=== PATIENT | female | born 1965 | race African-American/Black ===

== ENCOUNTER 2017-11-05 11:00 | Emergency (ER) | payer SELFPAY ==
[2017-11-05 11:54] LABS: Hemoglobin 12.5 g/dL (12.0-16.0); Mean Corpuscular HGB CONC 32.2 g/dL (32.0-36.0); Mean Corpuscular Hemoglobin 28.7 pg (27.0-31.0); Mean Corpuscular Volume 89.2 fl (81.0-99.0); Mean Platelet Volume 8.4 fL (7.4-10.4); Platelet Count 209 thou/uL (130-400); RBC Distribution Width 12.9 % (11.5-14.5); Red Blood Cell (RBC) Count 4.36 mill/uL (4.20-5.40); White Blood Cell (WBC) Count 5.7 thou/uL (4.8-10.8)
[2017-11-05 12:11] LABS: ALT (SGPT) 24 U/L (8-55); AST (SGOT) 28 U/L (5-34); Albumin 3.7 g/dL (3.5-5.0); Alkaline Phosphatase 50 U/L (40-150); Anion Gap 11 mmol/L (10-20); BUN (Urea Nitrogen) 9 mg/dL (7.0-18.7); Bilirubin, Total 0.7 mg/dL (0.2-1.2); CK (CPK) 155 U/L (29-168); Calc. Creatinine Clearance 0 mL/min (70-130); Carbon Dioxide 24 mmol/L (22-29); Chloride 105 mmol/L (98-107); Estimated GFR-MDRD Greater than 90; Globulin 3.6 g/dL (2.4-3.5); Glucose 86 mg/dL (70-105); Lipase 7 U/L (8-78); Potassium 4.2 mmol/L (3.5-5.1); Protein, Total 7.3 g/dL (6.0-8.3); Sodium 136 mmol/L (136-145)
--- NOTE | 2017-11-05 12:12 | RAD ---
AP VIEW CHEST: Date: 11/05/17 HISTORY: Chest pain. FINDINGS: Comparison made to previous exam from 07/20/10. AP view of chest demonstrates the lungs to be well aerated. No evidence of active intrathoracic disea se is seen. No evidence of effusions, pneumonia, or pneumothorax seen. IMPRESSION: Unremarkable AP view chest. POS: [facility]
[2017-11-05 12:15] LABS: CKMB 1.4 ng/mL (0-6.6); Troponin I Less than 0.010 ng/mL (< 0.028)
[2017-11-05 12:16] LABS: Eosinophils 1 % (0-10); Lymphocytes 46 % (21-51); MDiff Complete? YES; Monocytes 4 % (0-10); Neutrophil 49 % (42-75); PLT Morphology Comment Appears Adequate
[2017-11-05 15:20] LABS: Troponin I Less than 0.010 ng/mL (< 0.028)
== END 2017-11-05 15:48 | disposition home or self-care (01) ==
LOC: ERS 11:00
DX: R07.89 Other chest pain (principal)
CPT/HCPCS: 36415; 71045; 80053; 82550; 82553; 83690; 83880; 84484; 85025; 93005

== ENCOUNTER 2017-12-25 19:03 | Emergency (ER) | payer SELFPAY ==
[2017-12-25 19:30] LABS: Hemoglobin 11.8 g/dL (12.0-16.0); Mean Corpuscular HGB CONC 32.8 g/dL (32.0-36.0); Mean Corpuscular Hemoglobin 28.7 pg (27.0-31.0); Mean Corpuscular Volume 87.4 fl (81.0-99.0); Mean Platelet Volume 7.9 fL (7.4-10.4); Platelet Count 237 thou/uL (130-400); Red Blood Cell (RBC) Count 4.12 mill/uL (4.20-5.40)
[2017-12-25 19:50] LABS: ALT (SGPT) 7 U/L (8-55); AST (SGOT) 13 U/L (5-34); Albumin 3.8 g/dL (3.5-5.0); Alkaline Phosphatase 53 U/L (40-150); Anion Gap 11 mmol/L (10-20); BUN (Urea Nitrogen) 14 mg/dL (7.0-18.7); Bilirubin, Total 0.3 mg/dL (0.2-1.2); CK (CPK) 175 U/L (29-168); Calc. Creatinine Clearance 0 mL/min (70-130); Calcium 8.8 mg/dL (7.8-10.44); Carbon Dioxide 23 mmol/L (22-29); Chloride 107 mmol/L (98-107); Estimated GFR-MDRD Greater than 90; Globulin 3.2 g/dL (2.4-3.5); Glucose 93 mg/dL (70-105); Potassium 3.8 mmol/L (3.5-5.1); Sodium 137 mmol/L (136-145)
[2017-12-25 19:52] LABS: Eosinophils 1 % (0-10); Lymphocytes 72 % (21-51); MDiff Complete? YES; Monocytes 2 % (0-10); Neutrophil 25 % (42-75); PLT Morphology Comment Appears Adequate
[2017-12-25 19:54] LABS: CKMB 1.2 ng/mL (0-6.6); Troponin I Less than 0.010 ng/mL (< 0.028)
--- NOTE | 2017-12-25 20:25 | RAD ---
PORTABLE AP CHEST X-RAY 12/25/17 HISTORY: Chest pain and pressure for five hours. Also patient reports also chest tenderness to tough. COMPARISON: 11/05/17. FINDINGS: The cardiac silhouette and pulmonary vasculature are within normal limits for the portable technique of this study. Lungs remain clear. There has been no interval change when compared to the prior exam. IMPRESSION: No acute cardiopulmonary process. POS: [facility]
--- NOTE | 2017-12-26 15:38 | EKG ---
Test Reason : Blood Pressure : / mmHG Vent. Rate : 074 BPM Atrial Rate : 075 BPM P-R Int : 000 ms QRS Dur : 074 ms QT Int : 440 ms P-R-T Axes : 000 018 025 degrees QTc Int : 488 ms Normal sinus rhythm Cannot rule out Anterior infarct , age undetermined Abnormal ECG No acute process Confirmed by KHOA KEEN, CHANTELLE Lazar ([id number]), associate entertainment editor GISELL CROCKER ([id number]) on 12/26/2017 3:38:13 PM Referred By: Confirmed By:CHANTELLE COUCH MD
== END 2017-12-25 20:37 | disposition home or self-care (01) ==
LOC: ERS 19:03
DX: R07.9 Chest pain, unspecified (principal)
CPT/HCPCS: 71045; 80053; 82550; 82553; 83880; 84484; 85025; 85379; 93005

== ENCOUNTER 2018-01-02 20:43 | Emergency (ER) | payer SELFPAY | END 2018-01-02 21:04 | disposition left against medical advice (07) | LOC: ERS 20:43 | DX: Z53.21 Procedure and treatment not carried out due to patient leaving prior to being seen by health care provider (principal) ==

== ENCOUNTER 2020-01-15 23:39 | Emergency (ER) | payer SELFPAY | END 2020-01-16 00:20 | disposition home or self-care (01) | LOC: ERS 23:39 | DX: M79.10 Myalgia, unspecified site (principal) | CPT/HCPCS: 99281 ==

== ENCOUNTER 2020-03-30 03:02 | Emergency (ER) | payer SELFPAY ==
[2020-03-30 03:39] LABS: #Basophils 0.1 thou/uL (0.0-0.2); #Eosinphils 0.2 thou/uL (0.0-0.7); #Lymphocytes 2.9 thou/uL (1.20-3.40); #Monocytes 0.5 thou/uL (0.11-0.59); #Neutrophils 2.2 thou/uL (1.40-6.50); %Basophils 1.7 % (0.0-1.0); %Eosinophils 2.8 % (0.0-10.0); %Lymphocytes 48.7 % (21.0-51.0); %Neutrophils 37.7 % (42.0-75.0); Hemoglobin 12.8 g/dL (12.0-16.0); Mean Corpuscular HGB CONC 33.5 g/dL (32.0-36.0); Mean Corpuscular Volume 89.4 fL (78.0-98.0); Platelet Count 221 thou/uL (130-400); RBC Distribution Width 12.8 % (11.5-14.5); Red Blood Cell (RBC) Count 4.27 mill/uL (4.20-5.40); White Blood Cell (WBC) Count 5.9 thou/uL (4.8-10.8)
[2020-03-30 04:10] LABS: ALT (SGPT) 14 U/L (8-55); AST (SGOT) 21 U/L (5-34); Albumin 3.9 g/dL (3.5-5.0); Alkaline Phosphatase 56 U/L (40-110); Anion Gap 10 mmol/L (10-20); BUN (Urea Nitrogen) 11 mg/dL (9.8-20.1); Bilirubin, Total 0.6 mg/dL (0.2-1.2); Calc. Creatinine Clearance 0 mL/min (70-130); Calcium 8.8 mg/dL (7.8-10.44); Carbon Dioxide 24 mmol/L (22-29); Chloride 107 mmol/L (98-107); Estimated GFR-MDRD 90; Globulin 3.3 g/dL (2.4-3.5); Glucose 84 mg/dL (70-105); Lipase 21 U/L (8-78); Potassium 3.9 mmol/L (3.5-5.1); Protein, Total 7.2 g/dL (6.0-8.3); Sodium 137 mmol/L (136-145)
[2020-03-30 04:52] LABS: Bacteria/HPF 3+ HPF (None Seen); Bilirubin Negative (Negative); Blood, Urine 3+ (Negative); Clarity Turbid (Clear); Glucose, Urine (Dipstick) Normal (Negative); Leukocyte 75 Leu/uL (Negative); Nitrite Negative (Negative); Protein, Urine (Dipstick) Negative (Neg-Trace); RBC/HPF Greater than 50 HPF (0-3)
[2020-03-30] MEDS ORDERED: Ketorolac Tromethamine 30 MG/ML VIAL ONE (05:13)
[2020-03-30] MEDS ORDERED: Morphine 4 MG/ML VIAL ONE (05:13)
--- NOTE | 2020-03-30 07:52 | ULT ---
PRELIMINARY REPORT/[facility]/EMERGENCY AFTER HOURS PROCEDURE EXAM: US Abdomen Limited, Right Upper Quadrant. CLINICAL HISTORY: Abd pain, nausea TECHNIQUE: Real-time ultrasound of the right upper quadrant with image documentation. COMPARISON: None provided. FINDINGS: LIVER: Unremarkable. Measures 14.8 cm GALLBLADDER: Not clearly visualized however curvilinear echogenicity in this region may represent densely packed c holelithiasis COMMON BILE DUCT: Appears mildly dilated at 7.6 mm PANCREAS: Obscured by overlying bowel gas. RIGHT KIDNEY: Unremarkable. No hydronephrosis. Measures 10 cm IMPRESSION: Possible cholelithiasis with mild dilatation of the common bile duct ELECTRONICALLY SIGNED BY: Winston Stauffer MD Mar 30, 2020 6:28:02 AM CDT This report is intended for review by the ordering physician only, in accordance of law. If you recei ve this report in error, please call [facility] at [phone]. FINAL REPORT Sonogram right upper quadrant 03/30/2020 performed on emergency basis at 0600 hours HISTORY: Right upper quadrant pain. FINDINGS: Agree with the preliminary report by Dr. Stauffer from [facility]. Common bile duct is d ilated at 0.8 cm, raising concern for biliary obstruction, chronic versus acute. Gallbladder not well visualized. Shadowing at the gallbladder fossa could represent gallstones within a collapsed gal lbladder, calcification of the gallbladder wall, or duodenum with absence of the gallbladder. CT may be helpful for better characterization. Transcribed Date/Time: 03/30/2020 9:06 AM
== END 2020-03-30 08:22 | disposition home or self-care (01) ==
LOC: ERS 03:02
DX: N12 Tubulo-interstitial nephritis, not specified as acute or chronic (principal); R11.0 Nausea; R10.11 Right upper quadrant pain
CPT/HCPCS: 36415; 76705; 80053; 81003; 81015; 83690; 85025; 96372; J1885; J2270

== ENCOUNTER 2020-12-15 21:16 | Emergency (ER) | payer SELFPAY ==
[2020-12-15 21:55] LABS: #Eosinphils 0.2 thou/uL (0.0-0.7); #Lymphocytes 3.3 thou/uL (1.20-3.40); #Monocytes 0.7 thou/uL (0.11-0.59); #Neutrophils 3.2 thou/uL (1.40-6.50); %Basophils 0.5 % (0.0-1.0); %Eosinophils 2.6 % (0.0-10.0); %Lymphocytes 44.5 % (21.0-51.0); %Monocytes 8.9 % (0.0-10.0); %Neutrophils 43.5 % (42.0-75.0); Hemoglobin 12.2 g/dL (12.0-16.0); Mean Corpuscular HGB CONC 32.3 g/dL (32.0-36.0); Mean Corpuscular Hemoglobin 28.1 pg (27.0-31.0); Mean Corpuscular Volume 86.9 fL (78.0-98.0); Mean Platelet Volume 7.6 fL (7.4-10.4); Platelet Count 257 thou/uL (130-400); RBC Distribution Width 12.5 % (11.5-14.5); Red Blood Cell (RBC) Count 4.33 mill/uL (4.20-5.40); White Blood Cell (WBC) Count 7.4 thou/uL (4.8-10.8)
[2020-12-15 22:16] LABS: ALT (SGPT) 19 U/L (8-55); AST (SGOT) 27 U/L (5-34); Albumin 4.1 g/dL (3.5-5.0); Alkaline Phosphatase 60 U/L (40-110); Anion Gap 15 mmol/L (10-20); BUN (Urea Nitrogen) 14 mg/dL (9.8-20.1); Bilirubin, Total 0.6 mg/dL (0.2-1.2); Calc. Creatinine Clearance 0 mL/min (70-130); Calcium 9.5 mg/dL (7.8-10.44); Carbon Dioxide 22 mmol/L (22-29); Chloride 105 mmol/L (98-107); Globulin 3.5 g/dL (2.4-3.5); Glucose 98 mg/dL (70-105); Potassium 3.9 mmol/L (3.5-5.1); Protein, Total 7.6 g/dL (6.0-8.3); Sodium 138 mmol/L (136-145)
[2020-12-16 00:19] LABS: Bacteria/HPF None Seen HPF (None Seen); Bilirubin Negative (Negative); Blood, Urine Negative (Negative); Clarity Turbid (Clear); Glucose, Urine (Dipstick) Normal (Negative); Ketone, Urine Negative (Negative); Leukocyte 500 Leu/uL (Negative); Nitrite Negative (Negative); Protein, Urine (Dipstick) Negative (Neg-Trace); Specific Gravity, Urine 1.013 (1.002-1.036); Urobilinogen Normal mg/dL (Less than 2); WBC/HPF 21-50 HPF (0-3); pH, Urine 7.5 (5.0-9.0)
[2020-12-16 02:17] LABS: CK (CPK) 369 U/L (29-168); Lipase 18 U/L (8-78)
[2020-12-16] MEDS ORDERED: Sucralfate 1 GM/10 ML UDCUP ONE (02:32)
[2020-12-16] MEDS ORDERED: Ondansetron PF 4 MG/2 ML Vial ONE (02:32)
--- NOTE | 2020-12-16 11:09 | RAD ---
CHEST 1 VIEW: HISTORY: Epigastric pain. COMPARISON: A 12/25/2017 exam. FINDINGS: Heart size and mediastinum are within normal limits. The lungs are clear of infiltrates. No bony fi ndings. IMPRESSION: No active intrathoracic disease. POS: [facility]
== END 2020-12-16 02:46 | disposition home or self-care (01) ==
LOC: ERS 21:16
DX: N39.0 Urinary tract infection, site not specified (principal); R07.9 Chest pain, unspecified
CPT/HCPCS: 36415; 71045; 80053; 81003; 81015; 82550; 83690; 84484; 85025; 87086; 93005; 96374; J2405

== ENCOUNTER 2020-12-20 06:49 | Emergency (ER) | payer SELFPAY | END 2020-12-20 07:40 | disposition home or self-care (01) | LOC: ERS 06:49 | DX: R22.43 Localized swelling, mass and lump, lower limb, bilateral (principal); G62.9 Polyneuropathy, unspecified | CPT/HCPCS: 99283 ==

== ENCOUNTER 2021-01-02 11:36 | Outpatient (CLI) | payer OTHER | END 2021-01-02 11:37 | disposition home or self-care (01) | LOC: RAD 11:36 | PROVIDERS: ATTEND Nurse Practitioner Family | DX: M54.41 Lumbago with sciatica, right side (principal); M54.2 Cervicalgia; M47.814 Spondylosis without myelopathy or radiculopathy, thoracic region; M16.11 Unilateral primary osteoarthritis, right hip | CPT/HCPCS: 72072 ==

== ENCOUNTER 2021-01-14 14:41 | Outpatient (CLI) | payer OTHER | END 2021-01-14 14:42 | disposition home or self-care (01) | LOC: RAD-FRANK 14:41 | PROVIDERS: ATTEND Nurse Practitioner Family | DX: M54.2 Cervicalgia (principal); M54.41 Lumbago with sciatica, right side; M47.812 Spondylosis without myelopathy or radiculopathy, cervical region | CPT/HCPCS: 72040; 72100 ==

== ENCOUNTER 2021-09-26 00:54 | Emergency (ER) | payer SELFPAY ==
[2021-09-26] MEDS ORDERED: Ketorolac Tromethamine 30 MG/ML VIAL ONE (02:29)
[2021-09-26] MEDS ORDERED: Ondansetron PF 4 MG/2 ML Vial ONE (02:29)
[2021-09-26] MEDS ORDERED: Morphine 4 MG/ML VIAL ONE (02:29)
[2021-09-26 02:38] LABS: Bacteria/HPF None Seen HPF (None Seen); Bilirubin Negative (Negative); Blood, Urine 1+ (Negative); Clarity Extra Turbid (Clear); Glucose, Urine (Dipstick) Normal (Negative); Ketone, Urine Negative (Negative); Leukocyte 500 Leu/uL (Negative); Nitrite Negative (Negative); Protein, Urine (Dipstick) 300 mg/dL (Neg-Trace); RBC/HPF 21-50 HPF (0-3); Specific Gravity, Urine 1.015 (1.002-1.036); Squamous Epithelial 0-3 HPF (0-3); Urobilinogen Normal mg/dL (Less than 2); WBC/HPF Greater than 50 HPF (0-3); pH, Urine 7.5 (5.0-9.0)
[2021-09-26 02:46] LABS: #Basophils 0.1 thou/uL (0.0-0.2); #Eosinphils 0.1 thou/uL (0.0-0.7); #Lymphocytes 2.2 thou/uL (1.20-3.40); #Monocytes 0.5 thou/uL (0.11-0.59); #Neutrophils 2.9 thou/uL (1.40-6.50); %Basophils 0.9 % (0.0-1.0); %Eosinophils 2.4 % (0.0-10.0); %Lymphocytes 38.5 % (21.0-51.0); %Monocytes 9.1 % (0.0-10.0); %Neutrophils 49.2 % (42.0-75.0); Hemoglobin 11.3 g/dL (12.0-16.0); Mean Corpuscular HGB CONC 32.5 g/dL (32.0-36.0); Mean Corpuscular Hemoglobin 29.5 pg (27.0-31.0); Mean Corpuscular Volume 90.6 fL (78.0-98.0); Mean Platelet Volume 7.1 fL (7.4-10.4); Platelet Count 322 thou/uL (130-400); RBC Distribution Width 12.6 % (11.5-14.5); Red Blood Cell (RBC) Count 3.83 mill/uL (4.20-5.40); White Blood Cell (WBC) Count 5.8 thou/uL (4.8-10.8)
[2021-09-26 03:53] LABS: ALT (SGPT) 26 U/L (8-55); AST (SGOT) 23 U/L (5-34); Albumin 3.7 g/dL (3.5-5.0); Alkaline Phosphatase 54 U/L (40-110); Anion Gap 13 mmol/L (10-20); BUN (Urea Nitrogen) 12 mg/dL (9.8-20.1); Bilirubin, Total 0.3 mg/dL (0.2-1.2); Calc. Creatinine Clearance 0 mL/min (70-130); Calcium 9.5 mg/dL (7.8-10.44); Carbon Dioxide 25 mmol/L (22-29); Chloride 105 mmol/L (98-107); Globulin 3.6 g/dL (2.4-3.5); Glucose 97 mg/dL (70-105); Lipase 25 U/L (8-78); Potassium 3.7 mmol/L (3.5-5.1); Protein, Total 7.3 g/dL (6.0-8.3); Sodium 139 mmol/L (136-145)
== END 2021-09-26 06:24 | disposition home or self-care (01) ==
LOC: ERS 00:54
DX: N39.0 Urinary tract infection, site not specified (principal); R10.817 Generalized abdominal tenderness; G62.9 Polyneuropathy, unspecified; M19.90 Unspecified osteoarthritis, unspecified site
CPT/HCPCS: 74177; 80053; 81003; 81015; 83690; 85025; 96374; 96375; J1885; J2270; J2405

== ENCOUNTER 2022-02-19 18:49 | Emergency (ER) | payer SELFPAY ==
[2022-02-19 19:20] LABS: Hemoglobin 11.4 g/dL (12.0-16.0); Mean Corpuscular HGB CONC 32.9 g/dL (32.0-36.0); Mean Corpuscular Hemoglobin 29.4 pg (27.0-31.0); Mean Corpuscular Volume 89.4 fL (78.0-98.0); Mean Platelet Volume 7.5 fL (7.4-10.4); Platelet Count 222 thou/uL (130-400); RBC Distribution Width 13.1 % (11.5-14.5); Red Blood Cell (RBC) Count 3.89 mill/uL (4.20-5.40); White Blood Cell (WBC) Count 6.3 thou/uL (4.8-10.8)
[2022-02-19 19:37] LABS: Eosinophils 2 % (0-10); Lymphocytes 30 % (21-51); MDiff Complete? YES; Monocytes 10 % (0-10); Neutrophil 36 % (42-75); Platelet Morphology Comment Appears Adequate; Polychromasia SLIGHT = 2-3 cells (100X) (0-2/hpf); Reactive Lymphocytes 22 % (0-10); Stomatocytes SLIGHT = 2-5 cells (100X) (0-1/hpf)
[2022-02-19 19:38] LABS: ALT (SGPT) 15 U/L (8-55); AST (SGOT) 23 U/L (5-34); Albumin 3.9 g/dL (3.5-5.0); Alkaline Phosphatase 62 U/L (40-110); Anion Gap 9 mmol/L (10-20); BUN (Urea Nitrogen) 11 mg/dL (9.8-20.1); Bilirubin, Total 0.4 mg/dL (0.2-1.2); Calc. Creatinine Clearance 0 mL/min (70-130); Calcium 8.5 mg/dL (7.8-10.44); Carbon Dioxide 28 mmol/L (22-29); Chloride 104 mmol/L (98-107); Globulin 2.9 g/dL (2.4-3.5); Glucose 93 mg/dL (70-105); Lipase 31 U/L (8-78); Protein, Total 6.8 g/dL (6.0-8.3); Sodium 137 mmol/L (136-145)
[2022-02-19] MEDS ORDERED: Lidocaine Viscous Sol 2% 15 ml UD Cup ONE (21:15)
[2022-02-19] MEDS ORDERED: Mag-Al 1200 mg/1200 mg/30 ML UDCUP ONE (21:15)
[2022-02-19 21:41] LABS: Bacteria/HPF 1+ HPF (None Seen); Bilirubin Negative (Negative); Blood, Urine Negative (Negative); Clarity Turbid (Clear); Glucose, Urine (Dipstick) Normal (Negative); Ketone, Urine Negative (Negative); Leukocyte 500 Leu/uL (Negative); Nitrite Negative (Negative); Protein, Urine (Dipstick) Negative (Neg-Trace); RBC/HPF 0-3 HPF (0-3); Urobilinogen Normal mg/dL (Less than 2)
== END 2022-02-20 00:39 | disposition home or self-care (01) ==
LOC: ERS 18:49
DX: R07.9 Chest pain, unspecified (principal); G62.9 Polyneuropathy, unspecified; M19.90 Unspecified osteoarthritis, unspecified site
CPT/HCPCS: 36415; 71045; 80053; 81003; 81015; 83690; 84484; 85025; 85379; 93005

== ENCOUNTER 2022-04-02 07:39 | Outpatient (CLI) | payer OTHER ==
[2022-04-02] MEDS ORDERED: Regadenoson 0.4 MG/5 ML SYRINGE ONE (12:09)
== END 2022-04-02 07:40 | disposition home or self-care (01) ==
LOC: NM 07:39
PROVIDERS: ATTEND Internal Medicine Cardiovascular Disease
DX: R07.9 Chest pain, unspecified (principal)
CPT/HCPCS: 78452; 93017; A9500; J2785

== ENCOUNTER 2022-04-10 11:00 | Emergency (ER) | payer SELFPAY | END 2022-04-10 12:40 | disposition home or self-care (01) | LOC: ERS 11:00 | DX: S92.501A Displaced unspecified fracture of right lesser toe(s), initial encounter for closed fracture (principal); G62.9 Polyneuropathy, unspecified; X58.XXXA Exposure to other specified factors, initial encounter ==

== ENCOUNTER 2022-05-12 21:02 | Emergency (ER) | payer SELFPAY ==
[2022-05-12 22:00] LABS: Hemoglobin 11.2 g/dL (12.0-16.0); Mean Corpuscular HGB CONC 31.9 g/dL (32.0-36.0); Mean Corpuscular Hemoglobin 29.5 pg (27.0-31.0); Mean Corpuscular Volume 92.4 fL (78.0-98.0); Mean Platelet Volume 7.6 fL (7.4-10.4); Platelet Count 212 thou/uL (130-400); RBC Distribution Width 12.8 % (11.5-14.5); White Blood Cell (WBC) Count 5.4 thou/uL (4.8-10.8)
[2022-05-12 22:21] LABS: ALT (SGPT) 16 U/L (8-55); AST (SGOT) 24 U/L (5-34); Albumin 3.8 g/dL (3.5-5.0); Alkaline Phosphatase 62 U/L (40-110); Anion Gap 14 mmol/L (10-20); BUN (Urea Nitrogen) 20 mg/dL (9.8-20.1); Bilirubin, Total 0.3 mg/dL (0.2-1.2); CK (CPK) 316 U/L (29-168); Calc. Creatinine Clearance 0 mL/min (70-130); Carbon Dioxide 23 mmol/L (22-29); Chloride 109 mmol/L (98-107); Estimated GFR 75; Globulin 3.2 g/dL (2.4-3.5); Glucose 95 mg/dL (70-105); Lipase 34 U/L (8-78); Potassium 4.3 mmol/L (3.5-5.1); Sodium 142 mmol/L (136-145)
[2022-05-12 22:29] LABS: Band 2 % (5-11); Eosinophils 2 % (0-10); Lymphocytes 55 % (21-51); MDiff Complete? YES; Monocytes 9 % (0-10); Neutrophil 30 % (42-75); Platelet Morphology Comment Appears Adequate; RBC Morphology Normal; Reactive Lymphocytes 1 % (0-10)
[2022-05-12] MEDS ORDERED: Ondansetron ODT 4 MG TAB ONE (22:50)
[2022-05-12] MEDS ORDERED: Sucralfate 1 GM/10 ML UDCUP ONE (22:50)
[2022-05-12] MEDS ORDERED: Famotidine 20 MG TAB ONE (22:50)
[2022-05-12] MEDS ORDERED: Dicyclomine 20 MG/2 ML VIAL ONE (22:50)
== END 2022-05-12 23:42 | disposition home or self-care (01) ==
LOC: ERS 21:02
DX: R10.84 Generalized abdominal pain (principal); R11.2 Nausea with vomiting, unspecified; G62.9 Polyneuropathy, unspecified; M19.90 Unspecified osteoarthritis, unspecified site; Z79.899 Other long term (current) drug therapy
CPT/HCPCS: 36415; 71045; 80053; 82550; 83690; 84484; 85025; 93005; 96372; Q0162

== ENCOUNTER 2022-07-08 21:02 | Emergency (ER) | payer SELFPAY ==
[2022-07-08 22:08] LABS: #Eosinphils 0.1 thou/uL (0.0-0.7); #Lymphocytes 2.3 thou/uL (1.20-3.40); #Monocytes 0.6 thou/uL (0.11-0.59); #Neutrophils 3.8 thou/uL (1.40-6.50); %Basophils 0.3 % (0.0-1.0); %Eosinophils 1.7 % (0.0-10.0); %Monocytes 9.3 % (0.0-10.0); %Neutrophils 55.7 % (42.0-75.0); Hemoglobin 11.1 g/dL (12.0-16.0); Mean Corpuscular HGB CONC 32.8 g/dL (32.0-36.0); Mean Corpuscular Hemoglobin 29.3 pg (27.0-31.0); Mean Corpuscular Volume 89.5 fL (78.0-98.0); Mean Platelet Volume 7.8 fL (7.4-10.4); Platelet Count 245 thou/uL (130-400); RBC Distribution Width 11.9 % (11.5-14.5); Red Blood Cell (RBC) Count 3.79 mill/uL (4.20-5.40); White Blood Cell (WBC) Count 6.8 thou/uL (4.8-10.8)
[2022-07-08 22:16] LABS: Bacteria/HPF 3+ HPF (None Seen); Bilirubin Negative (Negative); Blood, Urine Negative (Negative); Clarity Turbid (Clear); Glucose, Urine (Dipstick) Normal (Negative); Ketone, Urine Negative (Negative); Leukocyte 25 Leu/uL (Negative); Nitrite Negative (Negative); Protein, Urine (Dipstick) Negative (Neg-Trace); RBC/HPF 0-3 HPF (0-3); Specific Gravity, Urine 1.015 (1.002-1.036); Squamous Epithelial 0-3 HPF (0-3); pH, Urine 6.5 (5.0-9.0)
[2022-07-08 22:28] LABS: ALT (SGPT) 21 U/L (8-55); AST (SGOT) 24 U/L (5-34); Albumin 3.7 g/dL (3.5-5.0); Alkaline Phosphatase 56 U/L (40-110); Anion Gap 14 mmol/L (10-20); BUN (Urea Nitrogen) 9 mg/dL (9.8-20.1); Bilirubin, Total 0.8 mg/dL (0.2-1.2); Calc. Creatinine Clearance 0 mL/min (70-130); Calcium 9.2 mg/dL (7.8-10.44); Carbon Dioxide 24 mmol/L (22-29); Chloride 103 mmol/L (98-107); Estimated GFR 92; Globulin 3.8 g/dL (2.4-3.5); Glucose 95 mg/dL (70-105); Potassium 3.3 mmol/L (3.5-5.1); Protein, Total 7.5 g/dL (6.0-8.3); Sodium 138 mmol/L (136-145)
[2022-07-08] MEDS ORDERED: Ketorolac Tromethamine 30 MG/ML VIAL ONE (22:38)
== END 2022-07-09 00:32 | disposition home or self-care (01) ==
LOC: ERS 21:02
DX: N39.0 Urinary tract infection, site not specified (principal); G62.9 Polyneuropathy, unspecified; M47.9 Spondylosis, unspecified; Z79.899 Other long term (current) drug therapy
CPT/HCPCS: 36415; 80053; 81003; 81015; 85025; 87077; 87086; 96374; J1885

== ENCOUNTER 2023-02-16 21:01 | Emergency (ER) | payer OTHER, SELFPAY ==
[2023-02-16] MEDS ORDERED: Ketorolac Tromethamine 30 MG/ML VIAL ONE (21:46)
[2023-02-16] MEDS ORDERED: Dexamethasone 4 mg/ml Vial ONE (21:50)
== END 2023-02-16 22:43 | disposition home or self-care (01) ==
LOC: ERS 21:01
DX: M54.42 Lumbago with sciatica, left side (principal)
CPT/HCPCS: 96372; 99283; J1100; J1885

== ENCOUNTER 2023-04-24 18:20 | Inpatient (IN) | payer OTHER, SELFPAY ==
[~2023-04-24 18:20] MED LIST: Iopamidol-370 76% 500 ML MDV (1 ML CHARGE) ONE
[2023-04-24 19:11] LABS: #Basophils 0.1 thou/uL (0.0-0.2); #Eosinphils 0.2 thou/uL (0.0-0.7); #Monocytes 0.7 thou/uL (0.11-0.59); #Neutrophils 4.6 thou/uL (1.40-6.50); %Basophils 0.6 % (0.0-1.0); %Lymphocytes 29.2 % (21.0-51.0); %Monocytes 9.1 % (0.0-10.0); %Neutrophils 57.5 % (42.0-75.0); Hemoglobin 11.2 g/dL (12.0-16.0); Mean Corpuscular HGB CONC 32.1 g/dL (32.0-36.0); Mean Corpuscular Hemoglobin 28.4 pg (27.0-31.0); Mean Corpuscular Volume 88.4 fl (78.0-98.0); Mean Platelet Volume 9.3 fL (7.4-10.4); Platelet Count 346 10x3/uL (130-400); RBC Distribution Width 12.9 % (11.5-14.5); Red Blood Cell (RBC) Count 3.95 mill/uL (4.20-5.40)
[2023-04-24 19:45] LABS: ALT (SGPT) 12 U/L (8-55); AST (SGOT) 16 U/L (5-34); Albumin 3.4 g/dL (3.5-5.0); Alkaline Phosphatase 56 U/L (40-110); Anion Gap 15 mmol/L (10-20); BUN (Urea Nitrogen) 11 mg/dL (9.8-20.1); Bilirubin, Total 0.8 mg/dL (0.2-1.2); Calc. Creatinine Clearance 0 mL/min (70-130); Carbon Dioxide 27 mmol/L (22-29); Chloride 103 mmol/L (98-107); Estimated GFR 83; Globulin 3.3 g/dL (2.4-3.5); Glucose 102 mg/dL (70-105); Protein, Total 6.7 g/dL (6.0-8.3); Sodium 142 mmol/L (136-145)
[2023-04-24 19:51] LABS: Potassium 2.6 mmol/L (3.5-5.1)
[2023-04-24 21:38] LABS: Bacteria/HPF None Seen HPF (None Seen); Bilirubin Negative (Negative); Blood, Urine Negative (Negative); CAUTI Indications for Culture Dysuria,urgency,freq; Clarity Clear (Clear); Glucose, Urine (Dipstick) Normal (Negative); Ketone, Urine Negative (Negative); Leukocyte Negative Leu/uL (Negative); Nitrite Negative (Negative); Protein, Urine (Dipstick) 20 mg/dL (Neg-Trace); RBC/HPF 0-3 HPF (0-3); Specific Gravity, Urine 1.026 (1.002-1.036); WBC/HPF 0-3 HPF (0-3)
[2023-04-24 21:39] LABS: Urine Culture Reflex No No
[2023-04-24] MEDS ORDERED: Potassium Chloride 20 MEQ TAB ONE (22:56)
[2023-04-24] MEDS ORDERED: Piperacillin/Tazobactam 4.5 GM VIAL ONE (22:59)
[2023-04-24] MEDS ORDERED: Acetaminophen 325 MG TAB PO PRN (23:09)
[2023-04-24] MEDS ORDERED: Ondansetron ODT 4 MG TAB PO PRN (23:14)
[2023-04-24] MEDS ORDERED: Ketorolac Tromethamine 30 MG/ML VIAL IVP PRN (23:19)
[2023-04-24] MEDS ORDERED: Lactated Ringer's 1,000 ML IV SCH (23:30)
[2023-04-25 01:04] VITALS: BMI 41.5
[2023-04-25] MEDS ORDERED: Ciprofloxacin 500 MG TAB PO SCH (06:00)
[2023-04-25 06:43] LABS: #Eosinphils 0.3 thou/uL (0.0-0.7); #Monocytes 0.8 thou/uL (0.11-0.59); #Neutrophils 3.7 thou/uL (1.40-6.50); %Basophils 0.6 % (0.0-1.0); %Eosinophils 3.8 % (0.0-10.0); %Lymphocytes 31.7 % (21.0-51.0); %Monocytes 11.2 % (0.0-10.0); %Neutrophils 52.1 % (42.0-75.0); Hemoglobin 10.6 g/dL (12.0-16.0); Mean Corpuscular Hemoglobin 28.6 pg (27.0-31.0); Mean Corpuscular Volume 89.5 fl (78.0-98.0); Mean Platelet Volume 9.2 fL (7.4-10.4); Platelet Count 342 10x3/uL (130-400); RBC Distribution Width 13.1 % (11.5-14.5); White Blood Cell (WBC) Count 7.1 10x3/uL (4.8-10.8)
[2023-04-25 07:06] LABS: ALT (SGPT) 11 U/L (8-55); AST (SGOT) 12 U/L (5-34); Albumin 3.1 g/dL (3.5-5.0); Alkaline Phosphatase 51 U/L (40-110); Anion Gap 13 mmol/L (10-20); BUN (Urea Nitrogen) 9 mg/dL (9.8-20.1); Bilirubin, Total 0.9 mg/dL (0.2-1.2); Calc. Creatinine Clearance 146 mL/min (70-130); Calcium 8.6 mg/dL (7.8-10.44); Carbon Dioxide 27 mmol/L (22-29); Chloride 104 mmol/L (98-107); Estimated GFR 87; Globulin 3.1 g/dL (2.4-3.5); Glucose 103 mg/dL (70-105); Protein, Total 6.2 g/dL (6.0-8.3); Sodium 141 mmol/L (136-145)
[2023-04-25 07:27] LABS: Potassium 2.6 mmol/L (3.5-5.1)
[2023-04-25] MEDS ORDERED: metroNIDAZOLE 500 MG TAB PO SCH (09:00)
[2023-04-25] MEDS: Gabapentin 100 MG CAP PO SCH ×3 (09:11→20:32)
[2023-04-25] MEDS: Ferrous Sulfate 325 MG TAB PO SCH (09:11)
[2023-04-25] MEDS: Potassium Chloride 20 MEQ in Premix Bag 1 BAG IVPB SCH ×2 (12:36→16:57)
[2023-04-25 17:29] LABS: Anion Gap 13 mmol/L (10-20); BUN (Urea Nitrogen) 8 mg/dL (9.8-20.1); Calc. Creatinine Clearance 152 mL/min (70-130); Calcium 8.4 mg/dL (7.8-10.44); Carbon Dioxide 27 mmol/L (22-29); Chloride 102 mmol/L (98-107); Estimated GFR 91; Glucose 125 mg/dL (70-105); Sodium 139 mmol/L (136-145)
[2023-04-25 17:42] LABS: Potassium 2.6 mmol/L (3.5-5.1)
[2023-04-25 19:57] LABS: Campy jejuni + coli by PCR Negative (Negative); STEC Shiga Toxin 1+2 Negative (Negative); Salmonella spp. by PCR Negative (Negative); Shigella spp + EIEC by PCR Negative (Negative)
[2023-04-25] MEDS: Fidaxomicin 200 MG TAB PO SCH (20:32)
[2023-04-25 22:41] LABS: Magnesium 1.7 mg/dL (1.6-2.6)
[2023-04-25 22:45] LABS: Potassium 2.6 mmol/L (3.5-5.1)
[2023-04-25] MEDS ORDERED: Potassium Chloride 20 MEQ TAB PO SCH (23:00)
[2023-04-26 02:56] LABS: #Basophils 0.1 thou/uL (0.0-0.2); #Eosinphils 0.3 thou/uL (0.0-0.7); #Monocytes 0.8 thou/uL (0.11-0.59); #Neutrophils 3.9 thou/uL (1.40-6.50); %Basophils 0.7 % (0.0-1.0); %Eosinophils 4.2 % (0.0-10.0); %Lymphocytes 32.4 % (21.0-51.0); Hemoglobin 10.1 g/dL (12.0-16.0); Mean Corpuscular HGB CONC 31.9 g/dL (32.0-36.0); Mean Corpuscular Hemoglobin 28.4 pg (27.0-31.0); Platelet Count 338 10x3/uL (130-400); Red Blood Cell (RBC) Count 3.56 mill/uL (4.20-5.40); White Blood Cell (WBC) Count 7.6 10x3/uL (4.8-10.8)
[2023-04-26 03:15] LABS: Potassium 2.8 mmol/L (3.5-5.1)
[2023-04-26 03:46] LABS: ALT (SGPT) 10 U/L (8-55); AST (SGOT) 12 U/L (5-34); Alkaline Phosphatase 52 U/L (40-110); Anion Gap 15 mmol/L (10-20); BUN (Urea Nitrogen) 6 mg/dL (9.8-20.1); Bilirubin, Total 0.7 mg/dL (0.2-1.2); Calc. Creatinine Clearance 146 mL/min (70-130); Calcium 8.4 mg/dL (7.8-10.44); Carbon Dioxide 26 mmol/L (22-29); Chloride 104 mmol/L (98-107); Estimated GFR 87; Globulin 2.5 g/dL (2.4-3.5); Glucose 106 mg/dL (70-105); Potassium 3.2 mmol/L (3.5-5.1); Protein, Total 5.5 g/dL (6.0-8.3); Sodium 142 mmol/L (136-145)
[2023-04-26] MEDS: Potassium Chloride 20 MEQ in Premix Bag 1 BAG IVPB SCH ×3 (04:05→23:41)
[2023-04-26] MEDS: Fidaxomicin 200 MG TAB PO SCH ×2 (09:37→21:34)
[2023-04-26] MEDS: Ferrous Sulfate 325 MG TAB PO SCH (09:37)
[2023-04-26] MEDS: Gabapentin 100 MG CAP PO SCH ×3 (09:37→21:34)
[2023-04-26 09:48] LABS: Potassium 3.2 mmol/L (3.5-5.1)
[2023-04-26 09:53] LABS: Magnesium 2.1 mg/dL (1.6-2.6)
[2023-04-26 15:47] LABS: Anion Gap 10 mmol/L (10-20); BUN (Urea Nitrogen) 7 mg/dL (9.8-20.1); Calc. Creatinine Clearance 136 mL/min (70-130); Calcium 8.4 mg/dL (7.8-10.44); Carbon Dioxide 28 mmol/L (22-29); Chloride 104 mmol/L (98-107); Estimated GFR 80; Glucose 115 mg/dL (70-105); Phosphorus 2.4 mg/dL (2.3-4.7); Potassium 2.9 mmol/L (3.5-5.1); Sodium 139 mmol/L (136-145)
[2023-04-26] MEDS ORDERED: Potassium Chloride 20 MEQ TAB PO SCH ×2 (16:15→23:00)
[2023-04-26 22:17] LABS: Anion Gap 10 mmol/L (10-20); BUN (Urea Nitrogen) 8 mg/dL (9.8-20.1); Calc. Creatinine Clearance 154 mL/min (70-130); Calcium 8.6 mg/dL (7.8-10.44); Carbon Dioxide 30 mmol/L (22-29); Chloride 101 mmol/L (98-107); Estimated GFR 92; Glucose 153 mg/dL (70-105); Potassium 2.9 mmol/L (3.5-5.1); Sodium 138 mmol/L (136-145)
[2023-04-27] MEDS: Potassium Chloride 20 MEQ in Premix Bag 1 BAG IVPB SCH (01:27)
[2023-04-27 06:36] LABS: #Basophils 0.1 thou/uL (0.0-0.2); #Eosinphils 0.3 thou/uL (0.0-0.7); #Monocytes 0.8 thou/uL (0.11-0.59); #Neutrophils 3.7 thou/uL (1.40-6.50); %Basophils 0.9 % (0.0-1.0); %Eosinophils 4.2 % (0.0-10.0); %Lymphocytes 35.2 % (21.0-51.0); %Monocytes 10.1 % (0.0-10.0); %Neutrophils 48.6 % (42.0-75.0); Hemoglobin 9.9 g/dL (12.0-16.0); Mean Corpuscular HGB CONC 31.3 g/dL (32.0-36.0); Mean Corpuscular Volume 89.5 fl (78.0-98.0); Mean Platelet Volume 9.5 fL (7.4-10.4); Platelet Count 357 10x3/uL (130-400); RBC Distribution Width 13.3 % (11.5-14.5); Red Blood Cell (RBC) Count 3.53 mill/uL (4.20-5.40); White Blood Cell (WBC) Count 7.7 10x3/uL (4.8-10.8)
[2023-04-27 07:04] LABS: ALT (SGPT) 9 U/L (8-55); AST (SGOT) 12 U/L (5-34); Albumin 2.9 g/dL (3.5-5.0); Alkaline Phosphatase 48 U/L (40-110); Anion Gap 11 mmol/L (10-20); BUN (Urea Nitrogen) 6 mg/dL (9.8-20.1); Bilirubin, Total 0.4 mg/dL (0.2-1.2); Calc. Creatinine Clearance 160 mL/min (70-130); Calcium 8.5 mg/dL (7.8-10.44); Carbon Dioxide 27 mmol/L (22-29); Chloride 106 mmol/L (98-107); Estimated GFR 97; Globulin 2.8 g/dL (2.4-3.5); Glucose 90 mg/dL (70-105); Magnesium 1.9 mg/dL (1.6-2.6); Potassium 3.6 mmol/L (3.5-5.1); Protein, Total 5.7 g/dL (6.0-8.3); Sodium 140 mmol/L (136-145)
[2023-04-27] MEDS: Gabapentin 100 MG CAP PO SCH ×3 (09:05→20:45)
[2023-04-27] MEDS: Fidaxomicin 200 MG TAB PO SCH ×2 (09:05→20:45)
[2023-04-27] MEDS: Ferrous Sulfate 325 MG TAB PO SCH (09:06)
[2023-04-27] MEDS: Potassium Chloride 20 MEQ TAB PO SCH (17:17)
[2023-04-28 05:34] LABS: #Basophils 0.1 thou/uL (0.0-0.2); #Eosinphils 0.3 thou/uL (0.0-0.7); #Monocytes 0.8 thou/uL (0.11-0.59); #Neutrophils 3.3 thou/uL (1.40-6.50); %Eosinophils 4.5 % (0.0-10.0); %Lymphocytes 38.7 % (21.0-51.0); %Monocytes 10.2 % (0.0-10.0); %Neutrophils 44.5 % (42.0-75.0); Hemoglobin 9.9 g/dL (12.0-16.0); Mean Corpuscular HGB CONC 30.9 g/dL (32.0-36.0); Mean Corpuscular Hemoglobin 27.9 pg (27.0-31.0); Mean Corpuscular Volume 90.1 fl (78.0-98.0); Mean Platelet Volume 9.2 fL (7.4-10.4); Platelet Count 346 10x3/uL (130-400); RBC Distribution Width 13.5 % (11.5-14.5); Red Blood Cell (RBC) Count 3.55 mill/uL (4.20-5.40); White Blood Cell (WBC) Count 7.3 10x3/uL (4.8-10.8)
[2023-04-28 06:01] LABS: ALT (SGPT) 11 U/L (8-55); AST (SGOT) 14 U/L (5-34); Albumin 2.9 g/dL (3.5-5.0); Alkaline Phosphatase 52 U/L (40-110); Anion Gap 11 mmol/L (10-20); BUN (Urea Nitrogen) 10 mg/dL (9.8-20.1); Bilirubin, Total 0.5 mg/dL (0.2-1.2); Calc. Creatinine Clearance 146 mL/min (70-130); Calcium 8.4 mg/dL (7.8-10.44); Carbon Dioxide 28 mmol/L (22-29); Chloride 107 mmol/L (98-107); Estimated GFR 87; Globulin 2.9 g/dL (2.4-3.5); Glucose 88 mg/dL (70-105); Potassium 3.9 mmol/L (3.5-5.1); Protein, Total 5.8 g/dL (6.0-8.3); Sodium 142 mmol/L (136-145)
[2023-04-28 06:05] LABS: Phosphorus 3.2 mg/dL (2.3-4.7)
[2023-04-28] MEDS: Ferrous Sulfate 325 MG TAB PO SCH (10:17)
[2023-04-28] MEDS: Potassium Chloride 20 MEQ TAB PO SCH ×2 (10:17→17:36)
[2023-04-28] MEDS: Gabapentin 100 MG CAP PO SCH ×3 (10:18→19:31)
[2023-04-28] MEDS: Fidaxomicin 200 MG TAB PO SCH ×2 (12:47→19:32)
[2023-04-28 16:14] VITALS: BP 126/84; TEMP 97.9
== END 2023-04-28 19:40 | disposition home or self-care (01) | DRG 372 ==
LOC: ERS 18:20 → SURG A 23:09 → OBSVTOIN 04-26 10:55
PROVIDERS: ADMIT Family Medicine; ATTEND Family Medicine
PROC: 0T2BX0Z Change Drainage Device in Bladder, External Approach (ICD-10-PCS; principal; 2023-04-26)
DX: A04.72 Enterocolitis due to Clostridium difficile, not specified as recurrent (principal); Z68.41 Body mass index [BMI] 40.0-44.9, adult; E87.6 Hypokalemia; M54.16 Radiculopathy, lumbar region; D50.9 Iron deficiency anemia, unspecified; G62.9 Polyneuropathy, unspecified; M19.90 Unspecified osteoarthritis, unspecified site; E66.01 Morbid (severe) obesity due to excess calories; Z88.8 Allergy status to other drugs, medicaments and biological substances; Z79.899 Other long term (current) drug therapy; Z98.51 Tubal ligation status; Z98.890 Other specified postprocedural states
CPT/HCPCS: 36415; 51702; 74177; 76770; 80053; 81001; 83630; 83735; 84100; 85025; 87324; 87449; 87493; 87505; 93005; 96365; 96366; 96372; 96375; 96376; G0378; J1650; J2543; J3475; J3480; J3490; J7120; Q9967

== ENCOUNTER 2023-06-24 20:24 | Emergency (ER) | payer OTHER, SELFPAY | END 2023-06-24 21:45 | disposition left against medical advice (07) | LOC: ERS 20:24 | DX: Z53.21 Procedure and treatment not carried out due to patient leaving prior to being seen by health care provider (principal) ==

== ENCOUNTER 2023-07-03 14:16 | Emergency (ER) | payer SELFPAY ==
[2023-07-03 15:45] LABS: #Monocytes 0.9 thou/uL (0.11-0.59); #Neutrophils 10.6 thou/uL (1.40-6.50); %Basophils 0.3 % (0.0-1.0); %Eosinophils 0.1 % (0.0-10.0); %Lymphocytes 9.3 % (21.0-51.0); %Neutrophils 82.9 % (42.0-75.0); Hematocrit 37.5 % (36.0-47.0); Hemoglobin 12.2 g/dL (12.0-16.0); Mean Corpuscular HGB CONC 32.5 g/dL (32.0-36.0); Mean Corpuscular Hemoglobin 28.6 pg (27.0-31.0); Mean Corpuscular Volume 87.8 fl (78.0-98.0); Mean Platelet Volume 10.5 fL (7.4-10.4); Platelet Count 203 10x3/uL (130-400); RBC Distribution Width 13.9 % (11.5-14.5); Red Blood Cell (RBC) Count 4.27 mill/uL (4.20-5.40); White Blood Cell (WBC) Count 12.8 10x3/uL (4.8-10.8)
[2023-07-03 16:03] LABS: ALT (SGPT) 11 U/L (8-55); AST (SGOT) 16 U/L (5-34); Albumin 3.8 g/dL (3.5-5.0); Alkaline Phosphatase 67 U/L (40-110); Anion Gap 12 mmol/L (10-20); BUN (Urea Nitrogen) 12 mg/dL (9.8-20.1); Bilirubin, Total 0.9 mg/dL (0.2-1.2); Calc. Creatinine Clearance 0 mL/min (70-130); Calcium 9.3 mg/dL (7.8-10.44); Carbon Dioxide 24 mmol/L (22-29); Chloride 105 mmol/L (98-107); Estimated GFR 73; Globulin 3.6 g/dL (2.4-3.5); Glucose 122 mg/dL (70-105); Lipase Less than 4 U/L (8-78); Potassium 2.7 mmol/L (3.5-5.1); Protein, Total 7.4 g/dL (6.0-8.3); Sodium 138 mmol/L (136-145)
[2023-07-03 17:19] LABS: Bacteria/HPF 1+ HPF (None Seen); Bilirubin Negative (Negative); Blood, Urine 1+ (Negative); CAUTI Indications for Culture Dysuria,urgency,freq; Clarity Turbid (Clear); Glucose, Urine (Dipstick) Normal (Negative); Ketone, Urine Negative (Negative); Leukocyte 500 Leu/uL (Negative); Nitrite Negative (Negative); Protein, Urine (Dipstick) 20 mg/dL (Neg-Trace); Specific Gravity, Urine 1.012 (1.002-1.036); Squamous Epithelial 0-3 HPF (0-3); Urobilinogen Normal mg/dL (Less than 2); WBC/HPF Greater than 50 HPF (0-3)
[2023-07-03 17:21] LABS: Urine Culture Reflex Yes Yes
[2023-07-03] MEDS ORDERED: Potassium Chloride 20 MEQ/100 ML PREMIX BAG ONE ×2 (17:38→20:29)
[2023-07-03] MEDS ORDERED: Ondansetron PF 4 MG/2 ML Vial ONE (17:38)
[2023-07-03] MEDS ORDERED: Morphine 4 MG/ML VIAL ONE (17:38)
[2023-07-03] MEDS ORDERED: cefTRIAXone (ROCEPHIN) 1 GM VIAL ONE (18:53)
== END 2023-07-04 00:26 | disposition home or self-care (01) ==
LOC: ERS 14:16
DX: N13.2 Hydronephrosis with renal and ureteral calculous obstruction (principal); N10 Acute pyelonephritis; E87.6 Hypokalemia; R33.9 Retention of urine, unspecified
CPT/HCPCS: 36415; 51702; 74177; 76770; 80053; 81001; 83605; 83690; 85025; 87040; 87077; 87086; 87149; 87186; 93005; 96365; 96366; 96375; J0696; J2270; J2405; J3480; Q9967

== ENCOUNTER 2023-07-13 18:32 | Emergency (ER) | payer SELFPAY ==
[2023-07-13 19:36] LABS: #Basophils 0.1 thou/uL (0.0-0.2); #Eosinphils 0.2 thou/uL (0.0-0.7); #Monocytes 0.4 thou/uL (0.11-0.59); #Neutrophils 2.4 thou/uL (1.40-6.50); %Basophils 0.8 % (0.0-1.0); %Eosinophils 2.5 % (0.0-10.0); %Lymphocytes 49.7 % (21.0-51.0); %Monocytes 7.1 % (0.0-10.0); %Neutrophils 39.6 % (42.0-75.0); Hematocrit 35.5 % (36.0-47.0); Hemoglobin 11.3 g/dL (12.0-16.0); Mean Corpuscular HGB CONC 31.8 g/dL (32.0-36.0); Mean Corpuscular Hemoglobin 28.2 pg (27.0-31.0); Mean Corpuscular Volume 88.5 fl (78.0-98.0); Mean Platelet Volume 9.9 fL (7.4-10.4); Platelet Count 330 10x3/uL (130-400); RBC Distribution Width 14.1 % (11.5-14.5); Red Blood Cell (RBC) Count 4.01 mill/uL (4.20-5.40)
[2023-07-13 20:01] LABS: ALT (SGPT) 11 U/L (8-55); AST (SGOT) 21 U/L (5-34); Alkaline Phosphatase 64 U/L (40-110); Anion Gap 13 mmol/L (10-20); BUN (Urea Nitrogen) 11 mg/dL (9.8-20.1); Bilirubin, Total 0.5 mg/dL (0.2-1.2); Calc. Creatinine Clearance 0 mL/min (70-130); Calcium 9.5 mg/dL (7.8-10.44); Carbon Dioxide 31 mmol/L (22-29); Chloride 104 mmol/L (98-107); Estimated GFR 68; Globulin 3.3 g/dL (2.4-3.5); Glucose 91 mg/dL (70-105); Potassium 3.2 mmol/L (3.5-5.1); Protein, Total 7.3 g/dL (6.0-8.3); Sodium 145 mmol/L (136-145)
[2023-07-13 20:02] LABS: CRP (Inflammatory) 1.68 mg/dL (= or < 0.5)
[2023-07-13 20:03] LABS: Troponin I Less than 0.010 ng/mL (< 0.028)
[2023-07-13] MEDS ORDERED: Ketorolac Tromethamine 30 MG/ML VIAL ONE (20:20)
[2023-07-13] MEDS ORDERED: Orphenadrine Citrate 60 MG/2 ML VIAL ONE (20:22)
[2023-07-13 21:30] LABS: Bacteria/HPF 4+ HPF (None Seen); Bilirubin Negative (Negative); Blood, Urine Negative (Negative); CAUTI Indications for Culture Pelvic or flank pain; Clarity Turbid (Clear); Glucose, Urine (Dipstick) Normal (Negative); Ketone, Urine Negative (Negative); Leukocyte 500 Leu/uL (Negative); Nitrite 1+ (Negative); Protein, Urine (Dipstick) Negative (Neg-Trace); RBC/HPF 0-3 HPF (0-3); Specific Gravity, Urine 1.012 (1.002-1.036); Urobilinogen Normal mg/dL (Less than 2); WBC/HPF 21-50 HPF (0-3); pH, Urine 7.5 (5.0-9.0)
[2023-07-13 21:32] LABS: Urine Culture Reflex Yes Yes
== END 2023-07-13 22:04 | disposition home or self-care (01) ==
LOC: ERS 18:32
DX: N39.0 Urinary tract infection, site not specified (principal); M54.50 Low back pain, unspecified
CPT/HCPCS: 36415; 51702; 71045; 74177; 80053; 81001; 83605; 83690; 84484; 85025; 86140; 87077; 87086; 87186; 93005; 96374; 96375; J1885; J2360; Q9967

== ENCOUNTER 2023-07-29 00:18 | Emergency (ER) | payer SELFPAY ==
[2023-07-29 02:01] LABS: Bacteria/HPF 4+ HPF (None Seen); Bilirubin Negative (Negative); Blood, Urine 2+ (Negative); CAUTI Indications for Culture Dysuria,urgency,freq; Clarity Turbid (Clear); Glucose, Urine (Dipstick) Normal (Negative); Ketone, Urine Negative (Negative); Leukocyte 500 Leu/uL (Negative); Nitrite Negative (Negative); Protein, Urine (Dipstick) Negative (Neg-Trace); Specific Gravity, Urine 1.009 (1.002-1.036); Urobilinogen Normal mg/dL (Less than 2); WBC/HPF Greater than 50 HPF (0-3)
[2023-07-29 02:04] LABS: Urine Culture Reflex Yes Yes
== END 2023-07-29 03:10 | disposition home or self-care (01) ==
LOC: ERS 00:18
DX: T83.091A Other mechanical complication of indwelling urethral catheter, initial encounter (principal)
CPT/HCPCS: 51702; 81001; 87077; 87086; 87186

== ENCOUNTER 2023-09-27 17:06 | Emergency (ER) | payer OTHER ==
[2023-09-27 17:45] LABS: Bacteria/HPF 4+ HPF (None Seen); Bilirubin Negative (Negative); Blood, Urine Trace (Negative); CAUTI Indications for Culture Acute Hematuria; Clarity Turbid (Clear); Glucose, Urine (Dipstick) Normal (Negative); Ketone, Urine Negative (Negative); Leukocyte 500 Leu/uL (Negative); Nitrite Negative (Negative); Protein, Urine (Dipstick) 30 mg/dL (Neg-Trace); RBC/HPF 0-3 HPF (0-3); Specific Gravity, Urine 1.015 (1.002-1.036); Squamous Epithelial 0-3 HPF (0-3); Urobilinogen Normal mg/dL (Less than 2); WBC/HPF Greater than 50 HPF (0-3); pH, Urine 6.5 (5.0-9.0)
[2023-09-27 17:46] LABS: Urine Culture Reflex Yes Yes
[2023-09-27] MEDS ORDERED: Lidocaine 1% PF 5 ML VIAL ONE (18:05)
[2023-09-27] MEDS ORDERED: cefTRIAXone (ROCEPHIN) 1 GM VIAL ONE (18:06)
== END 2023-09-27 18:10 | disposition home or self-care (01) ==
LOC: ERS 17:06
DX: T83.091A Other mechanical complication of indwelling urethral catheter, initial encounter (principal)
CPT/HCPCS: 51702; 81001; 87077; 87086; 87186; 96372; J0696

== ENCOUNTER 2023-11-01 19:50 | Inpatient (IN) | payer OTHER, SELFPAY ==
[2023-11-01 22:19] LABS: #Eosinphils 0.1 thou/uL (0.0-0.7); #Monocytes 0.8 thou/uL (0.11-0.59); #Neutrophils 10.3 thou/uL (1.40-6.50); %Basophils 0.3 % (0.0-1.0); %Eosinophils 0.4 % (0.0-10.0); %Lymphocytes 9.7 % (21.0-51.0); %Monocytes 6.1 % (0.0-10.0); %Neutrophils 83.3 % (42.0-75.0); Hematocrit 39.1 % (36.0-47.0); Hemoglobin 12.9 g/dL (12.0-16.0); Mean Corpuscular Hemoglobin 29.3 pg (27.0-31.0); Mean Corpuscular Volume 88.7 fl (78.0-98.0); Platelet Count 224 10x3/uL (130-400); RBC Distribution Width 13.6 % (11.5-14.5); Red Blood Cell (RBC) Count 4.41 mill/uL (4.20-5.40); White Blood Cell (WBC) Count 12.3 10x3/uL (4.8-10.8)
[2023-11-01 22:43] LABS: ALT (SGPT) 10 U/L (8-55); AST (SGOT) 16 U/L (5-34); Albumin 4.3 g/dL (3.5-5.0); Alkaline Phosphatase 72 U/L (40-110); Anion Gap 13 mmol/L (10-20); BUN (Urea Nitrogen) 19 mg/dL (9.8-20.1); Calc. Creatinine Clearance 0 mL/min (70-130); Calcium 9.8 mg/dL (7.8-10.44); Carbon Dioxide 24 mmol/L (22-29); Chloride 103 mmol/L (98-107); Estimated GFR 82; Globulin 3.8 g/dL (2.4-3.5); Glucose 130 mg/dL (70-105); Lipase 6 U/L (8-78); Potassium 3.6 mmol/L (3.5-5.1); Protein, Total 8.1 g/dL (6.0-8.3); Sodium 136 mmol/L (136-145)
[2023-11-01] MEDS ORDERED: Morphine 4 MG/ML VIAL ONE (23:39)
[2023-11-01] MEDS ORDERED: Ondansetron PF 4 MG/2 ML Vial ONE (23:39)
[2023-11-02 00:52] LABS: Bilirubin Negative (Negative); Blood, Urine Moderate (Negative); Glucose, Urine (Dipstick) Negative (Negative); Ketone, Urine Negative (Negative); Leukocyte Moderate (Negative); Nitrite Positive (Negative); Protein, Urine (Dipstick) 30 mg/dL (Neg-Trace); Specific Gravity, Urine 1.015 (1.005-1.030)
[2023-11-02 00:58] LABS: Bacteria/HPF 4+ HPF (None Seen); CAUTI Indications for Culture Pelvic or flank pain; Clarity Hazy (Clear); RBC/HPF 0-3 HPF (0-3); Renal Epithelial 0-3 HPF (None Seen); Squamous Epithelial 0-3 HPF (0-3)
[2023-11-02 01:00] LABS: Urine Culture Reflex No No
[2023-11-02] MEDS ORDERED: cefTRIAXone (ROCEPHIN) 2 GM VIAL ONE (01:51)
[2023-11-02] MEDS ORDERED: Sodium Chloride 0.9% 0 ML ONE (01:51)
[2023-11-02] MEDS ORDERED: Cefepime 2 GM VIAL ONE ×2 (03:20→16:02)
[2023-11-02] MEDS ORDERED: Sodium Chloride 0.9% 100 ML ONE ×2 (03:21→16:02)
[2023-11-02 03:40] LABS: Troponin I Less than 0.010 ng/mL (< 0.028)
[2023-11-02 04:14] LABS: SARS-CoV-2 NAA Rapid Test Not Detected (NotDetected)
[2023-11-02] MEDS ORDERED: Ondansetron PF 4 MG/2 ML Vial IVP PRN (04:48)
[2023-11-02] MEDS ORDERED: Ketorolac Tromethamine 30 MG (1 mL) VIAL IVP PRN (04:54)
[2023-11-02] MEDS ORDERED: Sodium Chloride 0.9% 1,000 ML IV SCH (05:00)
[2023-11-02 05:09] VITALS: BMI 45.7
[2023-11-02 06:06] LABS: #Basophils 0.1 thou/uL (0.0-0.2); %Basophils 0.3 % (0.0-1.0); %Eosinophils 0.1 % (0.0-10.0); %Monocytes 5.8 % (0.0-10.0); %Neutrophils 81.2 % (42.0-75.0); Hematocrit 39.3 % (36.0-47.0); Hemoglobin 12.5 g/dL (12.0-16.0); Mean Corpuscular HGB CONC 31.8 g/dL (32.0-36.0); Mean Corpuscular Hemoglobin 28.5 pg (27.0-31.0); Mean Corpuscular Volume 89.5 fl (78.0-98.0); Mean Platelet Volume 10.7 fL (7.4-10.4); Platelet Count 213 10x3/uL (130-400); RBC Distribution Width 13.8 % (11.5-14.5); Red Blood Cell (RBC) Count 4.39 mill/uL (4.20-5.40); White Blood Cell (WBC) Count 17.2 10x3/uL (4.8-10.8)
[2023-11-02 06:37] LABS: Anion Gap 14 mmol/L (10-20); BUN (Urea Nitrogen) 15 mg/dL (9.8-20.1); Calc. Creatinine Clearance 157 mL/min (70-130); Calcium 8.9 mg/dL (7.8-10.44); Carbon Dioxide 22 mmol/L (22-29); Chloride 105 mmol/L (98-107); Estimated GFR 88; Glucose 131 mg/dL (70-105); Sodium 137 mmol/L (136-145)
[2023-11-02] MEDS ORDERED: Lactated Ringer's 1,000 ML IV SCH ×2 (07:30)
[2023-11-02] MEDS ORDERED: Electrolyte Replacement Protocol 1 EACH FS SCH (07:30)
[2023-11-02] MEDS ORDERED: Morphine 2 MG/ML VIAL SLOW IVP PRN (07:31)
[2023-11-02] MEDS ORDERED: Electrolyte Replacement Protocol FS PRN (08:00)
[2023-11-02 08:23] LABS: Magnesium 1.8 mg/dL (1.6-2.6); Phosphorus 2.4 mg/dL (2.3-4.7)
[2023-11-02] MEDS ORDERED: Iopamidol-370 76% 500 ML MDV (1 ML CHARGE) ONE (08:55)
[2023-11-02] MEDS ORDERED: Enoxaparin 40 MG (0.4 mL) SYRINGE ONE (09:25)
[2023-11-02] MEDS: Enoxaparin 40 MG (0.4 mL) SYRINGE SC SCH (09:41)
[2023-11-02] MEDS ORDERED: Magnesium 2 GM/50 ML(in water) 2 GM in Premix 1 BAG IVPB SCH (09:45)
[2023-11-02] MEDS ORDERED: Acetaminophen 325 MG TAB ONE (10:36)
[2023-11-02] MEDS ORDERED: Magnesium 2 GM/50 ML BAG (IN WATER) ONE (15:29)
[2023-11-02] MEDS: Cefepime 2 GM in Sodium Chloride 0.9% 100 ML IVPB SCH (16:06)
[2023-11-02] MEDS: Gabapentin 100 MG CAP PO SCH (21:45)
[2023-11-03 04:29] LABS: #Eosinphils 0.1 thou/uL (0.0-0.7); #Monocytes 0.8 thou/uL (0.11-0.59); #Neutrophils 8.6 thou/uL (1.40-6.50); %Basophils 0.3 % (0.0-1.0); %Eosinophils 0.5 % (0.0-10.0); %Lymphocytes 18.9 % (21.0-51.0); %Monocytes 6.9 % (0.0-10.0); %Neutrophils 73.1 % (42.0-75.0); Hematocrit 33.7 % (36.0-47.0); Hemoglobin 10.9 g/dL (12.0-16.0); Mean Corpuscular HGB CONC 32.3 g/dL (32.0-36.0); Mean Corpuscular Hemoglobin 29.1 pg (27.0-31.0); Mean Corpuscular Volume 89.9 fl (78.0-98.0); Mean Platelet Volume 10.2 fL (7.4-10.4); Platelet Count 201 10x3/uL (130-400); RBC Distribution Width 13.6 % (11.5-14.5); Red Blood Cell (RBC) Count 3.75 mill/uL (4.20-5.40); White Blood Cell (WBC) Count 11.7 10x3/uL (4.8-10.8)
[2023-11-03] MEDS: Cefepime 2 GM in Sodium Chloride 0.9% 100 ML IVPB SCH ×2 (04:48→14:37)
[2023-11-03 04:57] LABS: Anion Gap 10 mmol/L (10-20); BUN (Urea Nitrogen) 11 mg/dL (9.8-20.1); Calc. Creatinine Clearance 169 mL/min (70-130); Calcium 8.7 mg/dL (7.8-10.44); Carbon Dioxide 22 mmol/L (22-29); Chloride 107 mmol/L (98-107); Estimated GFR 96; Glucose 98 mg/dL (70-105); Potassium 3.2 mmol/L (3.5-5.1); Sodium 136 mmol/L (136-145)
[2023-11-03] MEDS: Acetaminophen 325 MG TAB PO PRN ×2 (05:02→20:40)
[2023-11-03 05:36] LABS: Phosphorus 2.6 mg/dL (2.3-4.7)
[2023-11-03] MEDS ORDERED: Potassium Chloride 20 MEQ TAB PO SCH (08:00)
[2023-11-03] MEDS ORDERED: Magnesium 2 GM/50 ML(in water) 2 GM in Premix 1 BAG IVPB SCH (08:00)
[2023-11-03] MEDS: Ferrous Sulfate 325 MG TAB PO SCH (08:56)
[2023-11-03] MEDS: Enoxaparin 40 MG (0.4 mL) SYRINGE SC SCH (08:58)
[2023-11-03] MEDS: Gabapentin 100 MG CAP PO SCH ×3 (08:58→20:37)
[2023-11-03 15:30] LABS: Potassium 3.4 mmol/L (3.5-5.1)
[2023-11-04] MEDS ORDERED: Potassium Chloride 20 MEQ TAB PO SCH ×2 (00:45→09:30)
[2023-11-04] MEDS: Cefepime 2 GM in Sodium Chloride 0.9% 100 ML IVPB SCH ×3 (03:33→22:15)
[2023-11-04 05:50] LABS: #Eosinphils 0.1 thou/uL (0.0-0.7); #Monocytes 0.7 thou/uL (0.11-0.59); #Neutrophils 4.8 thou/uL (1.40-6.50); %Basophils 0.5 % (0.0-1.0); %Eosinophils 1.5 % (0.0-10.0); %Lymphocytes 27.8 % (21.0-51.0); %Monocytes 9.4 % (0.0-10.0); %Neutrophils 60.3 % (42.0-75.0); Hematocrit 33.6 % (36.0-47.0); Hemoglobin 10.9 g/dL (12.0-16.0); Mean Corpuscular HGB CONC 32.4 g/dL (32.0-36.0); Mean Corpuscular Hemoglobin 29.3 pg (27.0-31.0); Mean Corpuscular Volume 90.3 fl (78.0-98.0); Mean Platelet Volume 10.1 fL (7.4-10.4); Platelet Count 212 10x3/uL (130-400); RBC Distribution Width 13.4 % (11.5-14.5); Red Blood Cell (RBC) Count 3.72 mill/uL (4.20-5.40); White Blood Cell (WBC) Count 7.9 10x3/uL (4.8-10.8)
[2023-11-04 06:18] LABS: Anion Gap 13 mmol/L (10-20); BUN (Urea Nitrogen) 11 mg/dL (9.8-20.1); Calc. Creatinine Clearance 151 mL/min (70-130); Calcium 8.9 mg/dL (7.8-10.44); Carbon Dioxide 23 mmol/L (22-29); Chloride 107 mmol/L (98-107); Estimated GFR 84; Glucose 87 mg/dL (70-105); Magnesium 2.4 mg/dL (1.6-2.6); Potassium 3.5 mmol/L (3.5-5.1); Sodium 139 mmol/L (136-145)
[2023-11-04] MEDS: Ferrous Sulfate 325 MG TAB PO SCH (09:28)
[2023-11-04] MEDS: Enoxaparin 40 MG (0.4 mL) SYRINGE SC SCH (09:28)
[2023-11-04] MEDS: Gabapentin 100 MG CAP PO SCH ×3 (09:28→20:36)
[2023-11-04 15:09] LABS: Potassium 3.1 mmol/L (3.5-5.1)
[2023-11-04] MEDS: Acetaminophen 325 MG TAB PO PRN (20:39)
[2023-11-05] MEDS: Cefepime 2 GM in Sodium Chloride 0.9% 100 ML IVPB SCH ×3 (05:40→22:28)
[2023-11-05 06:01] LABS: #Basophils 0.1 thou/uL (0.0-0.2); #Eosinphils 0.1 thou/uL (0.0-0.7); #Monocytes 0.7 thou/uL (0.11-0.59); %Eosinophils 2.7 % (0.0-10.0); %Lymphocytes 40.9 % (21.0-51.0); %Monocytes 13.5 % (0.0-10.0); %Neutrophils 41.7 % (42.0-75.0); Hemoglobin 10.8 g/dL (12.0-16.0); Mean Corpuscular HGB CONC 32.7 g/dL (32.0-36.0); Mean Corpuscular Hemoglobin 29.2 pg (27.0-31.0); Mean Corpuscular Volume 89.2 fl (78.0-98.0); Mean Platelet Volume 9.8 fL (7.4-10.4); Platelet Count 221 10x3/uL (130-400); RBC Distribution Width 13.2 % (11.5-14.5); White Blood Cell (WBC) Count 4.9 10x3/uL (4.8-10.8)
[2023-11-05 06:23] LABS: Anion Gap 11 mmol/L (10-20); BUN (Urea Nitrogen) 11 mg/dL (9.8-20.1); Calc. Creatinine Clearance 174 mL/min (70-130); Calcium 8.7 mg/dL (7.8-10.44); Carbon Dioxide 23 mmol/L (22-29); Chloride 107 mmol/L (98-107); Estimated GFR 100; Glucose 91 mg/dL (70-105); Potassium 3.7 mmol/L (3.5-5.1); Sodium 137 mmol/L (136-145)
[2023-11-05] MEDS: Ferrous Sulfate 325 MG TAB PO SCH (08:50)
[2023-11-05] MEDS: Gabapentin 100 MG CAP PO SCH ×3 (08:50→20:20)
[2023-11-05] MEDS: Enoxaparin 40 MG (0.4 mL) SYRINGE SC SCH (08:51)
[2023-11-06 05:57] LABS: #Eosinphils 0.2 thou/uL (0.0-0.7); #Monocytes 0.7 thou/uL (0.11-0.59); #Neutrophils 1.4 thou/uL (1.40-6.50); %Basophils 0.8 % (0.0-1.0); %Eosinophils 3.6 % (0.0-10.0); %Lymphocytes 50.3 % (21.0-51.0); %Monocytes 15.6 % (0.0-10.0); %Neutrophils 28.9 % (42.0-75.0); Hematocrit 31.7 % (36.0-47.0); Hemoglobin 10.3 g/dL (12.0-16.0); Mean Corpuscular HGB CONC 32.5 g/dL (32.0-36.0); Mean Corpuscular Hemoglobin 29.3 pg (27.0-31.0); Mean Corpuscular Volume 90.1 fl (78.0-98.0); Mean Platelet Volume 10.1 fL (7.4-10.4); Platelet Count 239 10x3/uL (130-400); RBC Distribution Width 13.2 % (11.5-14.5); Red Blood Cell (RBC) Count 3.52 mill/uL (4.20-5.40); White Blood Cell (WBC) Count 4.7 10x3/uL (4.8-10.8)
[2023-11-06] MEDS: Cefepime 2 GM in Sodium Chloride 0.9% 100 ML IVPB SCH ×3 (06:13→21:36)
[2023-11-06 06:22] LABS: Anion Gap 11 mmol/L (10-20); BUN (Urea Nitrogen) 13 mg/dL (9.8-20.1); Calc. Creatinine Clearance 182 mL/min (70-130); Calcium 8.8 mg/dL (7.8-10.44); Carbon Dioxide 23 mmol/L (22-29); Chloride 107 mmol/L (98-107); Estimated GFR 102; Glucose 89 mg/dL (70-105); Potassium 3.4 mmol/L (3.5-5.1); Sodium 138 mmol/L (136-145)
[2023-11-06] MEDS: Enoxaparin 40 MG (0.4 mL) SYRINGE SC SCH (08:19)
[2023-11-06] MEDS: Gabapentin 100 MG CAP PO SCH ×3 (08:20→21:35)
[2023-11-06] MEDS: Ferrous Sulfate 325 MG TAB PO SCH (08:20)
[2023-11-06] MEDS ORDERED: Potassium Chloride 20 MEQ TAB PO SCH ×2 (09:15→10:00)
[2023-11-07] MEDS: Cefepime 2 GM in Sodium Chloride 0.9% 100 ML IVPB SCH ×2 (05:57→14:39)
[2023-11-07 06:08] LABS: Hematocrit 33.1 % (36.0-47.0); Hemoglobin 10.6 g/dL (12.0-16.0); Manual Diff?? YES; Mean Corpuscular Hemoglobin 28.5 pg (27.0-31.0); Mean Platelet Volume 9.7 fL (7.4-10.4); Platelet Count 257 10x3/uL (130-400); RBC Distribution Width 13.2 % (11.5-14.5); Red Blood Cell (RBC) Count 3.72 mill/uL (4.20-5.40); White Blood Cell (WBC) Count 5.2 10x3/uL (4.8-10.8)
[2023-11-07 06:11] LABS: Delete Auto Diff?? YES
[2023-11-07 06:37] LABS: Anion Gap 13 mmol/L (10-20); BUN (Urea Nitrogen) 12 mg/dL (9.8-20.1); Band 1 % (5-11); Calc. Creatinine Clearance 161 mL/min (70-130); Carbon Dioxide 24 mmol/L (22-29); CellaVision Operator ID lab.abc; Chloride 106 mmol/L (98-107); Eosinophils 6 % (0-10); Estimated GFR 90; Glucose 85 mg/dL (70-105); Large Platelets 5.1 % (0-5); Lymphocytes 47 % (21-51); Monocytes 15 % (0-10); Neutrophil 26 % (42-75); Platelet Adequacy Comment Platelets Normal; Potassium 3.9 mmol/L (3.5-5.1); RBC Morphology Within Normal Limits; Reactive Lymphocytes 5 % (0-10); Smudge Cells 16.2 %; Sodium 139 mmol/L (136-145); Total Cell Count 99
[2023-11-07] MEDS: Gabapentin 100 MG CAP PO SCH ×2 (09:44→14:39)
[2023-11-07] MEDS: Ferrous Sulfate 325 MG TAB PO SCH (09:44)
[2023-11-07] MEDS: Enoxaparin 40 MG (0.4 mL) SYRINGE SC SCH (09:45)
[2023-11-07 17:43] VITALS: BP 149/84; TEMP 98
== END 2023-11-07 18:11 | disposition home or self-care (01) | DRG 698 ==
LOC: ERS 19:50 → ERHOLD 11-02 03:20 → MSONC 11-02 20:48
PROVIDERS: ADMIT Internal Medicine; ATTEND Internal Medicine
DX: T83.511A Infection and inflammatory reaction due to indwelling urethral catheter, initial encounter (principal); A41.59 Other Gram-negative sepsis; N13.6 Pyonephrosis; R33.9 Retention of urine, unspecified; F41.8 Other specified anxiety disorders; G62.9 Polyneuropathy, unspecified; M54.40 Lumbago with sciatica, unspecified side; G89.29 Other chronic pain; E87.6 Hypokalemia; K21.9 Gastro-esophageal reflux disease without esophagitis; Z79.2 Long term (current) use of antibiotics; Z79.899 Other long term (current) drug therapy; Z98.51 Tubal ligation status; Z90.49 Acquired absence of other specified parts of digestive tract; Z80.42 Family history of malignant neoplasm of prostate; Z80.3 Family history of malignant neoplasm of breast; Z11.52 Encounter for screening for COVID-19; Y84.6 Urinary catheterization as the cause of abnormal reaction of the patient, or of later complication, without mention of misadventure at the time of the procedure
CPT/HCPCS: 36415; 71045; 74177; 80048; 80053; 81001; 83605; 83690; 83735; 83880; 84100; 84145; 84484; 85025; 87040; 87077; 87086; 87149; 87186; 93005; 96374; 96375; J0692; J0696; J1650; J2270; J2405; J3475; J3490; J7050; J7120; Q9967

== ENCOUNTER 2024-03-03 08:48 | Day surgery (SDC) | payer OTHER ==
[2024-03-03] MEDS ORDERED: PROPOFOL 80 ML ONE (12:08)
[2024-03-03] MEDS ORDERED: Lidocaine 2% PF 5 ML VIAL ONE (12:09)
[2024-03-03] MEDS ORDERED: Glycopyrrolate 0.2 MG/ML 5 ML SYRINGE ONE (12:30)
== END 2024-03-03 13:59 | disposition home or self-care (01) ==
LOC: SDC 08:48
PROVIDERS: ATTEND Internal Medicine Gastroenterology
PROC: 0DB68ZX Excision of Stomach, Via Natural or Artificial Opening Endoscopic, Diagnostic (ICD-10-PCS; principal; 2024-03-03)
PROC: 0DBP8ZZ Excision of Rectum, Via Natural or Artificial Opening Endoscopic (ICD-10-PCS; principal; 2024-03-03)
DX: Z12.11 Encounter for screening for malignant neoplasm of colon (principal); D12.8 Benign neoplasm of rectum; K64.9 Unspecified hemorrhoids; K57.30 Diverticulosis of large intestine without perforation or abscess without bleeding; K31.89 Other diseases of stomach and duodenum; K29.70 Gastritis, unspecified, without bleeding; K21.9 Gastro-esophageal reflux disease without esophagitis; E66.9 Obesity, unspecified; G62.9 Polyneuropathy, unspecified; N18.9 Chronic kidney disease, unspecified; F41.9 Anxiety disorder, unspecified; M19.90 Unspecified osteoarthritis, unspecified site
CPT/HCPCS: 88305; J2001; J2704

== ENCOUNTER 2024-05-01 14:17 | Emergency (ER) | payer OTHER | END 2024-05-01 15:22 | disposition home or self-care (01) | LOC: ERS 14:17 | DX: J01.90 Acute sinusitis, unspecified (principal); M54.42 Lumbago with sciatica, left side; M19.90 Unspecified osteoarthritis, unspecified site; Z79.899 Other long term (current) drug therapy | CPT/HCPCS: 99282 ==

== ENCOUNTER 2024-08-21 06:57 | Emergency (ER) | payer OTHER ==
[2024-08-21 09:55] LABS: Bilirubin Negative (Negative); Blood, Urine Negative (Negative); CAUTI Indications for Culture < 2yrs of age; Clarity Turbid (Clear); Glucose, Urine (Dipstick) Normal (Negative); Ketone, Urine Negative (Negative); Leukocyte 500 Leu/uL (Negative); Mucous/LPF 1+ LPF (<2+); Nitrite 2+ (Negative); Protein, Urine (Dipstick) Negative (Neg-Trace); RBC/HPF 0-3 HPF (0-3); Specific Gravity, Urine 1.003 (1.002-1.036); Urobilinogen Normal mg/dL (Less than 2); pH, Urine 7.5 (5.0-9.0)
[2024-08-21 09:56] LABS: Bacteria/HPF 1+ HPF (None Seen)
[2024-08-21 09:57] LABS: Unclassified Crystals Rare HPF (None Seen)
[2024-08-21 09:58] LABS: Urine Culture Reflex Yes Yes
== END 2024-08-21 10:13 | disposition home or self-care (01) ==
LOC: ERS 06:57
DX: T83.098A Other mechanical complication of other urinary catheter, initial encounter (principal); N39.0 Urinary tract infection, site not specified
CPT/HCPCS: 51702; 81001; 87077; 87086; 87186; 99284

== ENCOUNTER 2025-06-09 10:20 | Outpatient (CLI) | payer OTHER | END 2025-06-09 10:21 | disposition home or self-care (01) | LOC: BICMAMMO 10:20 | PROVIDERS: ATTEND Nurse Practitioner Family | DX: Z12.31 Encounter for screening mammogram for malignant neoplasm of breast (principal); Z80.3 Family history of malignant neoplasm of breast | CPT/HCPCS: 77063; 77067 ==

== ENCOUNTER 2025-06-30 19:43 | Emergency (ER) | payer OTHER ==
[2025-06-30 20:27] LABS: #Basophils 0.07 10x3/uL (0.0-0.2); #Eosinophils 0.12 10x3/uL (0.0-0.7); #Monocytes 0.42 10x3/uL (0.11-0.59); #Neutrophils 2.38 10x3/uL (1.40-6.50); %Basophils 1.1 % (0.0-1.0); %Eosinophils 1.9 % (0.0-10.0); %Lymphocytes 51.5 % (21.0-51.0); %Monocytes 6.8 % (0.0-10.0); %Neutrophils 38.5 % (42.0-75.0); Hematocrit 39.0 % (36.0-47.0); Hemoglobin 12.3 g/dL (12.0-16.0); Mean Corpuscular Hemoglobin 28.4 pg (27.0-31.0); Mean Corpuscular Volume 90.1 fL (78.0-98.0); Platelet Count 231 10x3/uL (130-400); Red Blood Cell (RBC) Count 4.33 mill/uL (4.20-5.40); White Blood Cell (WBC) Count 6.19 10x3/uL (4.8-10.8)
[2025-06-30 20:48] LABS: ALT (SGPT) 8 U/L (Less than 34); AST (SGOT) 20 U/L (11-34); Albumin 4.1 g/dL (3.1-4.5); Alkaline Phosphatase 69 U/L (40-110); Anion Gap 14 mmol/L (10-20); BUN (Urea Nitrogen) 10 mg/dL (9.8-20.1); Bilirubin, Total 0.4 mg/dL (0.3-1.2); Calc. Creatinine Clearance 0 mL/min (70-130); Calcium 9.3 mg/dL (7.8-10.44); Carbon Dioxide 25 mmol/L (22-29); Chloride 106 mmol/L (98-107); Globulin 3.1 g/dL (2.4-3.5); Glucose 88 mg/dL (70-105); Potassium 3.7 mmol/L (3.5-5.1); Sodium 141 mmol/L (136-145)
== END 2025-06-30 23:35 ==
LOC: ERS 19:43
DX: T83.098A Other mechanical complication of other urinary catheter, initial encounter (principal)
CPT/HCPCS: 36415; 51702; 80053; 85025; 99283

== ENCOUNTER 2025-10-09 13:10 | Emergency (ER) | payer OTHER ==
[2025-10-09 15:02] LABS: Bacteria/HPF None Seen HPF (None Seen); CAUTI Indications for Culture Fever or rigors; Glucose, Urine (Dipstick) Normal (Negative); Leukocyte 25 Leu/uL (Negative); Protein, Urine (Dipstick) Negative (Neg-Trace); RBC/HPF 0-3 HPF (0-3); Specific Gravity, Urine 1.018 (1.002-1.036); WBC/HPF None Seen HPF (0-3)
[2025-10-09 15:03] LABS: Urine Culture Reflex No No
[2025-10-09] MEDS ORDERED: cefTRIAXone (ROCEPHIN) 1 GM VIAL ONE (15:22)
== END 2025-10-09 17:26 | disposition home or self-care (01) ==
LOC: ERS 13:10
DX: N39.0 Urinary tract infection, site not specified (principal); M79.605 Pain in left leg; Z96.0 Presence of urogenital implants
CPT/HCPCS: 74176; 81001; 96372; J0696